=== PATIENT | female | born 1995 | race Caucasian/White ===

== ENCOUNTER 2017-05-29 10:08 | Emergency (ER) | payer SELFPAY ==
--- NOTE | 2017-05-29 10:28 | EDM.PDOC ---
ED HPI GENERAL MEDICAL PROBLEM - General Chief Complaint: Lower Extremity Injury/Pain Stated Complaint: LEFT ANKLE INJURY Time Seen by Provider: 05/29/17 10:26 Source of Information: Reports: Patient History Limitations: Reports: No Limitations - History of Present Illness INITIAL COMMENTS - FREE TEXT/NARRATIVE: The patient states that she slipped and fell down 3 stairs inside her home around 09:00 this morning. She twisted her left ankle in the fall. She is otherwise uninjured. No prior left ankle injury. Left Ankle Pain Score (Numeric/FACES): 7 - Related Data Allergies Allergy/AdvReac Type Severity Reaction Status Date / Time bee venom protein (honey bee) Allergy Swelling Verified 05/29/17 10:18 Home Meds: Home Meds . [No Known Home Meds] 05/29/17 [History] Past Medical History - Past Health History Medical/Surgical History: Denies Medical/Surgical History Social & Family History - Tobacco Use Smoking Status *Q: Never Smoker - Caffeine Use Caffeine Use: Reports: Coffee - Recreational Drug Use Recreational Drug Use: No Review of Systems - Review of Systems Review Of Systems: ROS reveals no pertinent complaints other than HPI. ED EXAM, GENERAL - Physical Exam Exam: See Below Exam Limited By: No Limitations General Appearance: Alert, WD/WN, No Apparent Distress Extremities: Other (Mild swelling over the left lateral malleolus, but no other visible abnormalities, such as erythema, ecchymosis, or abrasion. There is tenderness to palpation of the swollen tissue. No inversion of the left foot. Neurovascular status of the left lower extremity is intact.) Course - Vital Signs Last Recorded V/S: Last Vital Signs Temp 36.7 C 05/29/17 10:12 Pulse 80 05/29/17 10:12 Resp 16 05/29/17 10:12 BP 130/77 05/29/17 10:12 Pulse Ox 100 05/29/17 10:12 - Orders/Labs/Meds Orders: Active Orders 24 hr Category Date Time Status Ankle Min 3V Lt [CR] Stat Exams 05/29/17 10:10 Taken Ibuprofen [Motrin] Med 05/29/17 10:37 Once 800 mg PO ONETIME ONE DME for Discharge [COMM] Stat Oth 05/29/17 10:37 Ordered - Re-Assessments/Exams Free Text/Narrative Re-Assessment/Exam: 05/29/17 10:27 3-view radiographs of the left ankle appear to be unremarkable. No fracture or dislocation identified. Formal read per the Radiologist pending. 05/29/17 10:35 The patient will be placed into an Aircast prior to discharge home. I'm recommending ice, elevation, and ibuprofen. I will refer her to Dr. Ortiz, should her ankle not improve. Departure - Departure Time of Disposition: 10:38 Disposition: Home, Self-Care 01 Condition: Good Clinical Impression: Left ankle sprain - Discharge Information Referrals: Brijesh Ortiz MD [Physician] - Forms: ED Department Discharge Additional Instructions: You were seen in the emergency room after slipping and falling down 3 stairs, injuring your left ankle. Workup in the ER included x-rays of your left ankle, which were normal. No broken bones or dislocations. You have sprained your left ankle. You have been placed into an Aircast. Apply this each morning and remove at bedtime. Wear the Aircast for 7 days, after which you should begin walking without it, even though your ankle may still be sore. Ice and elevate your left ankle is much as possible over the next 2 days, to help minimize swelling. Take [id number] ibuprofen 2-3 tablets (400-600 mg) every 8 hours, with food, as needed for discomfort. Follow-up with the Orthopedic Surgeon, Dr. Brijesh Ortiz, in 1-2 weeks if your ankle is still sore to walk on. If any other problems, please do not hesitate to return to the ER. - My Orders Last 24 Hours: My Active Orders 05/29/17 10:10 Ankle Min 3V Lt [CR] Stat 05/29/17 10:37 Ibuprofen [Motrin] 800 mg PO ONETIME ONE DME for Discharge [COMM] Stat - Assessment/Plan Last 24 Hours: My Active Orders 05/29/17 10:10 Ankle Min 3V Lt [CR] Stat 05/29/17 10:37 Ibuprofen [Motrin] 800 mg PO ONETIME ONE DME for Discharge [COMM] Stat
[2017-05-29] MEDS ORDERED: Ibuprofen 800 MG Tab PO ONE (10:37)
--- NOTE | 2017-05-30 09:15 | CR ---
Left ankle: Three views of the left ankle were obtained. Comparison: No prior ankle study. Soft tissue swelling is identified. Ankle mortise is symmetric. No acute fracture, dislocation or other bony abnormality is identified. Impression: 1. Soft tissue swelling. 2. No bony abnormality is identified on left ankle exam. Diagnostic code #2
== END 2017-05-29 10:50 | disposition home or self-care (01) ==
LOC: JD.ED 10:08
DX: S93.402A Sprain of unspecified ligament of left ankle, initial encounter (principal); Z91.030 Bee allergy status; W10.8XXA Fall (on) (from) other stairs and steps, initial encounter; X50.1XXA Overexertion from prolonged static or awkward postures, initial encounter
CPT/HCPCS: 73610; 99283; A9270